=== PATIENT | male | born 1980 | race Caucasian/White ===

== ENCOUNTER 2020-07-11 12:09 | Outpatient (REF) | payer OTHER, SELFPAY | END 2020-07-11 12:10 | disposition home or self-care (01) | LOC: HO.LAB 12:09 | PROVIDERS: Visit Provider Internal Medicine | DX: Z20.822 Contact with and (suspected) exposure to COVID-19 (principal) | CPT/HCPCS: 36415; C9803; U0003; U0005 ==

== ENCOUNTER 2021-04-10 07:53 | Outpatient (REF) | payer OTHER, SELFPAY ==
[2021-04-10 08:12] LABS: COVID-19 Test Positive (Negative)
== END 2021-04-10 07:54 | disposition home or self-care (01) ==
LOC: HO.LAB 07:53
PROVIDERS: Visit Provider Internal Medicine
DX: Z20.822 Contact with and (suspected) exposure to COVID-19 (principal)
CPT/HCPCS: 36415; 87635; C9803

== ENCOUNTER 2022-01-18 15:47 | Emergency (ER) | payer OTHER, SELFPAY ==
[2022-01-18 15:59] VITALS: BP 141/62; PULSE 99; RESP 18; TEMP 36.7; O2SAT 98; BMI 25.1
== END 2022-01-18 16:27 | disposition left against medical advice (07) ==
PROVIDERS: Emergency Provider Emergency Medicine; PCP Internal Medicine
DX: R50.9 Fever, unspecified (principal); M79.10 Myalgia, unspecified site
CPT/HCPCS: 99281